=== PATIENT | male | born 1940 | race Hispanic/Latino ===

== ENCOUNTER 2017-10-24 12:04 | Inpatient (IN) | payer MEDICARE, MEDICAID ==
[~2017-10-24] VITALS: Ht 154.9 cm; Wt 83.9 kg
[~2017-10-24 12:04] MED LIST: ACETAMINOPHEN-1 EAC1 ORAL; ALUM-MAG HYDRO360 ML PO; ASPIR 8181 MG ORAL; ATIVAN0.5 MG ORAL; CARDURA4 MG ORAL; CATAPRES0.1 MG ORAL; COLACE100 MG ORAL; COLACE250 MG ORAL; COREG12.5 MG ORAL; DEXILANT30 MG ORAL; DILTIAZEM ER240 M2 ORAL; DILTIAZEM ER300 M1 PO; DUONEB 0.5-3(2.53 ML HHN; FUROSEMIDE40 MG ORAL; LEVEMIR FL100 UNIT/1 SUBQ; LOVENOX10 MG SUBQ; MILK OF MA400 MG/51 ORAL; NORCO 5-325 TA1 EACH ORAL; NOVOLIN R100 UNIT/1 SUBQ; OMEPRAZOLE20 M2 ORAL; RESTORIL15 MG ORAL; ROBITUSSIN100 MG/52 ORAL; TYLENOL EXTRA500 MG ORAL; TYLENOL325 MG ORAL; TYLENOL650 MG/20. ORAL; UNOBMED; ZOFRAN4 M1 ORAL
[2017-10-24 12:06] VITALS: BP 146/100
[2017-10-24 13:35] VITALS: BP 135/54
--- NOTE | 2017-10-24 13:37 | Diagnostic Imaging Report ---
Indication: Dyspnea Comparison: 04/22/1960 A single view chest radiograph was obtained. Findings: Right pleural effusion is suspected. The heart is enlarged. Some vascular congestion noted. IMPRESSION: Suspect mild CHF. Right pleural effusion suspected.
[2017-10-24 13:38] LABS: MEAN CORPUSCULAR HEMOGLOBIN 31.6 PG (27.0-31.0); MEAN CORPUSCULAR HGB CONC 32.1 G/DL (32.0-36.0); MEAN CORPUSCULAR VOLUME 98 FL (80-99); MEAN PLATELET VOLUME 7.2 FL (6.5-10.1); PLATELET COUNT 219 K/UL (150-450); RED BLOOD COUNT 4.15 M/UL (4.70-6.10); RED CELL DISTRIBUTION WIDTH 12.4 % (11.6-14.8); WHITE BLOOD COUNT 9.7 K/UL (4.8-10.8)
[2017-10-24 13:48] LABS: ANION GAP 12 mmol/L (5-15); CALCIUM 9.1 MG/DL (8.5-10.1); CARBON DIOXIDE 25 MMOL/L (21-32); CHLORIDE 100 MMOL/L (98-107); CREATININE 5.3 MG/DL (0.55-1.30); SODIUM 137 MMOL/L (136-145)
[2017-10-24] MEDS ORDERED: DiphenhydrAMINE 50mg/ml Inj IVP ONE (14:00)
[2017-10-24 14:03] LABS: ALANINE AMINOTRANSFERASE 17 U/L (12-78); ALBUMIN/GLOBULIN RATIO 0.7 (1.0-2.7); ASPARTATE AMINO TRANSFERASE 26 U/L (15-37); TOTAL PROTEIN 8.5 G/DL (6.4-8.2)
[2017-10-24 14:18] LABS: BAND NEUTROPHILS % (MANUAL) 0 % (0-8); BASOPHILS % (MANUAL) 0 % (0-2); EOSINOPHILS % (MANUAL) 2 % (0-3); LYMPHOCYTES % (MANUAL) 7 % (20-45); NEUTROPHILS % (MANUAL) 86 % (45-75); PLATELET ESTIMATE ADEQUATE; PLATELET MORPHOLOGY NORMAL; TOTAL CELLS COUNTED 100
--- NOTE | 2017-10-24 14:54 | Emergency Room Report ---
History of Present Illness General Chief Complaint: Nausea Source: Patient, EMS Present Illness HPI 77-year-old male presents to ED for evaluation. Patient presents [facility] with nausea and vomiting x2 days. Denies any abdominal pain. Patient did not dialysis today because he's been vomiting. Denies chest pain or shortness of breath. Denies fevers or chills. No other aggravating relieving factors. Denies any other associated symptoms Allergies: Coded Allergies: NO KNOWN ALLERGIES (Unverified Allergy, Unknown, 09/09/15) Patient History Past Medical History: COPD, GERD, psych hx Past Surgical History: none Pertinent Family History: none Social History: Denies: smoking, alcohol use, drug use Immunizations: UTD Reviewed Nursing Documentation: PMH: Agreed, PSxH: Agreed Nursing Documentation-PMH Hx Cardiac Problems: Yes Hx Hypertension: Yes Hx COPD: Yes Hx Diabetes: Yes Hx Cancer: No Hx Gastrointestinal Problems: Yes - gi reflux,weakness Hx Dialysis: Yes History Of Psychiatric Problem: Yes - depresive disorder Hx Neurological Problems: No Review of Systems All Other Systems: negative except mentioned in HPI Physical Exam Vital Signs Date Time Temp Pulse Resp B/P (MAP) Pulse Ox O2 Delivery O2 Flow Rate FiO2 10/24/17 11:56 97.9 74 18 160/66 98 Room Air Sp02 EP Interpretation: reviewed, normal General Appearance: no apparent distress, alert, GCS 15, non-toxic Head: normocephalic, atraumatic Eyes: bilateral eye normal inspection, bilateral eye PERRL ENT: hearing grossly normal, normal pharynx, no angioedema, normal voice Neck: full range of motion, supple/symm/no masses Respiratory: chest non-tender, lungs clear, normal breath sounds, speaking full sentences Cardiovascular #1: regular rate, rhythm, no edema Cardiovascular #2: 2+ carotid (R), 2+ carotid (L), 2+ radial (R), 2+ radial (L) , 2+ dorsalis pedis (R), 2+ dorsalis pedis (L) Gastrointestinal: normal bowel sounds, non tender, soft, non-distended, no guarding, no rebound Rectal: deferred Genitourinary: normal inspection, no CVA tenderness Musculoskeletal: back normal, non-tender Neurologic: alert, oriented x3, responsive, motor strength/tone normal, sensory intact, speech normal Psychiatric: judgement/insight normal, memory normal, mood/affect normal, no suicidal/homicidal ideation Reflexes: 3+ bicep (R), 3+ bicep (L), 3+ tricep (R), 3+ tricep (L), 3+ knee (R) , 3+ knee (L) Skin: normal color, no rash, warm/dry, well hydrated Lymphatic: no adenopathy Medical Decision Making Diagnostic Impression: Primary Impression: CHF (congestive heart failure), NYHA class III Qualified Codes: I50.9 - Heart failure, unspecified Additional Impression: ESRD (end stage renal disease) on dialysis ER Course Hospital Course 77-year-old male presents ED with nausea and vomiting. Missing but dialysis today Differential diagnoses include: MN/unstable angina, fluid overload, CHF exacerabation, hyperkalemia, uremia Clinical course Patient placed on stretcher. on bus monitor. After initial history and physical I ordered labs, EKG, chest x-ray, IVFs, zofran labs reviewed- BUN/Cr elevated. K ok. no leukocytosis, hemoglobin/hematocrit stable, trop negative EKG - NSR, no acute ischemic changes interpreted by me Chest x-ray- cardiomegaly/CHF Patient unable to tolerate by mouth in ED. Requiring more Zofran Case discussed with Dr. Mcdonald and he agreed to accept the patient to his service for further care and support I. I feel this is a highly complex case requiring extensive working including EKG/Rhythm strip, Xray/CT/US, Blood/urine lab work, repeat exams while in ED, and administration of strong opiates/narcotics for pain control, admission to hospital or close patient follow up. Diagnosis - CHF, ESRD on dialysis admitted to floor in serious condition Labs Test 10/24/17 13:00 White Blood Count 9.7 K/UL (4.8-10.8) Red Blood Count 4.15 M/UL (4.70-6.10) Hemoglobin 13.1 G/DL (14.2-18.0) Hematocrit 40.8 % (42.0-52.0) Mean Corpuscular Volume 98 FL (80-99) Mean Corpuscular Hemoglobin 31.6 PG (27.0-31.0) Mean Corpuscular Hemoglobin Concent 32.1 G/DL (32.0-36.0) Red Cell Distribution Width 12.4 % (11.6-14.8) Platelet Count 219 K/UL (150-450) Mean Platelet Volume 7.2 FL (6.5-10.1) Neutrophils (%) (Auto) % (45.0-75.0) Lymphocytes (%) (Auto) % (20.0-45.0) Monocytes (%) (Auto) % (1.0-10.0) Eosinophils (%) (Auto) % (0.0-3.0) Basophils (%) (Auto) % (0.0-2.0) Differential Total Cells Counted 100 Neutrophils % (Manual) 86 % (45-75) Lymphocytes % (Manual) 7 % (20-45) Monocytes % (Manual) 5 % (1-10) Eosinophils % (Manual) 2 % (0-3) Basophils % (Manual) 0 % (0-2) Band Neutrophils 0 % (0-8) Platelet Estimate Adequate Platelet Morphology Normal Red Blood Cell Morphology Normal Sodium Level 137 MMOL/L (136-145) Potassium Level 5.0 MMOL/L (3.5-5.1) Chloride Level 100 MMOL/L (98-107) Carbon Dioxide Level 25 MMOL/L (21-32) Anion Gap 12 mmol/L (5-15) Blood Urea Nitrogen 57 mg/dL (7-18) Creatinine 5.3 MG/DL (0.55-1.30) Estimat Glomerular Filtration Rate mL/min (>60) Glucose Level 175 MG/DL (74-106) Calcium Level 9.1 MG/DL (8.5-10.1) Total Bilirubin 0.7 MG/DL (0.2-1.0) Aspartate Amino Transf (AST/SGOT) 26 U/L (15-37) Alanine Aminotransferase (ALT/SGPT) 17 U/L (12-78) Alkaline Phosphatase 137 U/L (46-116) Total Creatine Kinase 89 U/L (26-308) Creatine Kinase MB 2.0 NG/ML (0.0-3.6) Creatine Kinase MB Relative Index 2.2 Troponin I 0.008 ng/mL (0.000-0.056) Pro-B-Type Natriuretic Peptide 48105 pg/mL (0-125) Total Protein 8.5 G/DL (6.4-8.2) Albumin 3.6 G/DL (3.4-5.0) Globulin 4.9 g/dL Albumin/Globulin Ratio 0.7 (1.0-2.7) EKG Diagnostic Results Rate: normal Rhythm: NSR ST Segments: no acute changes ASA given to the pt in ED: No Rhythm Strip Diag. Results EP Interpretation: yes Rhythm: NSR, no PVC's, no ectopy Chest X-Ray Diagnostic Results Chest X-Ray Diagnostic Results : Chest X-Ray Ordered: Yes # of Views/Limited/Complete: 1 View Indication: Chest Pain EP Interpretation: Yes Interpretation: no pneumothorax, no acute cardiopulmonary disease, other - cardiomegaly. effusion Impression: Other - chf Electronically Signed by: Electronically signed by Jose Burns MD Last Vital Signs Date Time Temp Pulse Resp B/P (MAP) Pulse Ox O2 Delivery O2 Flow Rate FiO2 10/24/17 13:35 73 14 135/54 96 Room Air 10/24/17 12:06 97.6 Status: improved Disposition: ADMITTED INPATIENT Condition: Serious Referrals: HARPAL VALENCIA (PCP) JOSE BURNS M.D. Oct 24, 2017 14:54
[2017-10-24 15:07] VITALS: BP 128/51
[2017-10-24 16:30] VITALS: BP 119/58
[2017-10-24 17:30] VITALS: BP 132/60
[2017-10-24] MEDS ORDERED: Triamcinolone 0.1% 15gm Cr TOPIC SCH (18:15)
[2017-10-24] MEDS ORDERED: Docusate 250mg cap ORAL PRN (19:00)
[2017-10-24] MEDS ORDERED: Milk of Magnesia 30ml Ud ORAL PRN (19:00)
[2017-10-24 20:00] VITALS: BP 115/53
[2017-10-24] MEDS: Carvedilol 12.5mg tab ORAL SCH (21:23)
[2017-10-24] MEDS: NovoLOG Insulin Flexpen SUBQ SCH (21:25)
[2017-10-24] MEDS: Levemir Flexpen SUBQ SCH (21:26)
[2017-10-24] MEDS: Heparin 5000 units/ml inj SUBQ SCH (21:27)
--- NOTE | 2017-10-24 23:45 | Consultation ---
DATE OF CONSULTATION: 10/24/2017 NEPHROLOGY CONSULTATION CONSULTING PHYSICIAN: Duke Christine M.D. ATTENDING PHYSICIAN: Jerrod Mcdonald M.D. HISTORY OF PRESENT ILLNESS: The patient has end-stage renal disease, on dialysis for many years. End-stage renal disease is due to diabetes and also hypertension. He has had nausea and vomiting for the past two days. No apparent fever, chills, hematochezia, melena, diarrhea, or constipation. He now comes with the above problem. He has been quite stable on dialysis. He has chronic CHF compensated usually by fluid removal on dialysis and hypertension has generally been well controlled on dialysis lately. ALLERGIES: None known. PAST SURGICAL HISTORY: Right below-knee amputation and left arm AV fistula. HABITS: He is a nondrinker and nonsmoker. MEDICATIONS: Include milk of magnesia, [place], and Tylenol p.r.n. Sliding scale of regular insulin, Prilosec 20 mg daily, Nephro-Diann one daily, diltiazem 240 mg daily, Pro-Stat 30 mL b.i.d., aspirin 81 mg daily, Cardura 4 mg b.i.d., Coreg 12.5 mg b.i.d., and Levemir 18 units daily. PHYSICAL EXAMINATION: GENERAL: The patient is alert man lying . NOTE: DICTATION ENDED ABRUPTLY Duke Christine M.D. DR: Nikita JOB#: [id number] CC:
[2017-10-25] MEDS: Triamcinolone 0.1% 15gm Cr TOPIC SCH ×4 (00:04→17:13)
[2017-10-25 00:29] VITALS: BP 111/56
[2017-10-25 04:00] VITALS: BP 137/62
[2017-10-25] MEDS ORDERED: Heparin Sod 1000 units/ml 10ml IV SCH (06:00)
[2017-10-25] MEDS: NovoLOG Insulin Flexpen SUBQ SCH ×4 (06:30→21:00)
[2017-10-25 08:00] VITALS: BP 145/67
--- NOTE | 2017-10-25 08:26 | Nephrology Progress Note ---
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 Plan hd today ppi elimite Subjective Constitutional: Reports: weakness HEENT: Reports: no symptoms Genitourinary: Reports: no symptoms Neurologic/Psychiatric: Reports: no symptoms Objective Objective Last 24 Hour Vital Signs Date Time Temp Pulse Resp B/P (MAP) Pulse Ox O2 Delivery O2 Flow Rate FiO2 10/25/17 04:00 97.6 61 20 137/62 94 10/25/17 00:29 97.7 54 18 111/56 94 10/24/17 21:23 55 115/53 10/24/17 20:00 97.7 55 19 115/53 94 10/24/17 17:30 98.2 70 17 132/60 97 Room Air 10/24/17 17:30 70 17 132/60 97 Room Air 10/24/17 16:30 96.3 57 20 119/58 95 Room Air 10/24/17 15:07 98.0 62 15 128/51 95 Room Air 10/24/17 13:35 73 14 135/54 96 Room Air 10/24/17 12:06 97.6 78 22 146/100 94 Room Air 10/24/17 11:56 97.9 74 18 160/66 98 Room Air Laboratory Tests 10/24/17 13:00: White Blood Count 9.7, Red Blood Count 4.15L, Hemoglobin 13.1L, Hematocrit 40.8L , Mean Corpuscular Volume 98, Mean Corpuscular Hemoglobin 31.6H, Mean Corpuscular Hemoglobin Concent 32.1, Red Cell Distribution Width 12.4, Platelet Count 219, Mean Platelet Volume 7.2, Neutrophils (%) (Auto) , Lymphocytes (%) ( Auto) , Monocytes (%) (Auto) , Eosinophils (%) (Auto) , Basophils (%) (Auto) , Differential Total Cells Counted 100, Neutrophils % (Manual) 86H, Lymphocytes % (Manual) 7L, Monocytes % (Manual) 5, Eosinophils % (Manual) 2, Basophils % ( Manual) 0, Band Neutrophils 0, Platelet Estimate Adequate, Platelet Morphology Normal, Red Blood Cell Morphology Normal, Sodium Level 137, Potassium Level 5.0 , Chloride Level 100, Carbon Dioxide Level 25, Anion Gap 12, Blood Urea Nitrogen 57H, Creatinine 5.3H, Estimat Glomerular Filtration Rate , Glucose Level 175H, Calcium Level 9.1, Total Bilirubin 0.7, Aspartate Amino Transf (AST/ SGOT) 26, Alanine Aminotransferase (ALT/SGPT) 17, Alkaline Phosphatase 137H, Total Creatine Kinase 89, Creatine Kinase MB 2.0, Creatine Kinase MB Relative Index 2.2, Troponin I 0.008, Pro-B-Type Natriuretic Peptide 76652S, Total Protein 8.5H, Albumin 3.6, Globulin 4.9, Albumin/Globulin Ratio 0.7L Height (Feet): 5 Height (Inches): 1.00 Weight (Pounds): 185 General Appearance: no apparent distress, alert EENT: normal ENT inspection Neck: normal alignment Cardiovascular: normal rate, regular rhythm Respiratory/Chest: lungs clear Abdomen: non tender, soft, no organomegaly Extremities: trace edema, other - r LUIS Shipley Oct 25, 2017 08:26
[2017-10-25 08:52] LABS: BASOPHILS % (AUTO) 0.9 % (0.0-2.0); EOSINOPHILS % (AUTO) 4.9 % (0.0-3.0); LYMPHOCYTES % (AUTO) 16.3 % (20.0-45.0); MEAN CORPUSCULAR HEMOGLOBIN 31.5 PG (27.0-31.0); MEAN CORPUSCULAR HGB CONC 32.1 G/DL (32.0-36.0); MEAN CORPUSCULAR VOLUME 98 FL (80-99); MEAN PLATELET VOLUME 7.2 FL (6.5-10.1); MONOCYTES % (AUTO) 7.1 % (1.0-10.0); NEUTROPHILS % (AUTO) 70.8 % (45.0-75.0); PLATELET COUNT 181 K/UL (150-450); RED BLOOD COUNT 3.55 M/UL (4.70-6.10); RED CELL DISTRIBUTION WIDTH 12.2 % (11.6-14.8); WHITE BLOOD COUNT 7.5 K/UL (4.8-10.8)
[2017-10-25 08:58] LABS: ANION GAP 7 mmol/L (5-15); CALCIUM 8.2 MG/DL (8.5-10.1); CARBON DIOXIDE 28 MMOL/L (21-32); CHLORIDE 106 MMOL/L (98-107); CREATININE 6.2 MG/DL (0.55-1.30); POTASSIUM 4.6 MMOL/L (3.5-5.1); SODIUM 141 MMOL/L (136-145)
[2017-10-25] MEDS: Heparin 5000 units/ml inj SUBQ SCH ×2 (09:00→21:00)
[2017-10-25] MEDS: dilTIAZem HCl CD 240mg cap ORAL SCH (09:00)
[2017-10-25] MEDS: Carvedilol 12.5mg tab ORAL SCH ×2 (09:00→21:00)
[2017-10-25] MEDS ORDERED: dilTIAZem HCl CD 240mg cap ORAL SCH (09:00)
[2017-10-25] MEDS: Aspirin Baby 81mg ORAL SCH (09:17)
[2017-10-25 12:00] VITALS: BP 148/76
--- NOTE | 2017-10-25 15:15 | History and Physical Report ---
DATE OF ADMISSION: 10/24/2017 CHIEF COMPLAINT: Nausea, vomiting, and end-stage renal disease. HISTORY OF PRESENT ILLNESS: The patient is a 77-year-old male. He has a history of end-stage renal disease, congestive heart failure, diabetes, and hypertension. He presented from [facility] facility with complaints of intractable nausea and vomiting for four days. According to the patient, he has had intermittent episodes of vomiting for four days. He denies any diarrhea. No melena. No bright red blood per rectum. He was transferred to the emergency room because the patient's symptoms had persisted, were not improving after four days on evaluation there. Initial labs were unremarkable, but in light of the patient's persistent nausea and vomiting, he is admitted for further evaluation and care. PAST MEDICAL HISTORY: As above. PAST SURGICAL HISTORY: Includes a prior history of BKA. CURRENT MEDICATIONS: Reconciled and reviewed. ALLERGIES: None. FAMILY HISTORY: None. SOCIAL HISTORY: Negative for tobacco, ethanol, or drugs. REVIEW OF SYSTEMS: GENERAL: No fever or chills. HEENT: No headaches or visual changes. CARDIOPULMONARY: No chest pain or shortness of breath. GASTROINTESTINAL: Positive nausea and vomiting. GENITOURINARY: No urgency or frequency. MUSCULOSKELETAL: No joint pain or swelling. NEUROLOGIC: No evidence of seizures. SKIN: Positive history of rash and itching. PHYSICAL EXAMINATION: VITAL SIGNS: Temperature 97.6, pulse 61, respirations 20, and blood pressure 137/62. GENERAL: The patient is a well-developed male, in no apparent distress. He is awake, alert, and oriented x4. NECK: Supple. HEART: Regular rate and rhythm. LUNGS: Clear. ABDOMEN: Soft. Slightly distended. There is no rebound or guarding. EXTREMITIES: Without clubbing, cyanosis, or edema. There is right BKA. SKIN: The patient has multiple excoriations over the arms, legs, and chest. LABORATORY DATA: White count was 9 and hemoglobin 13. Sodium 137 and creatinine 5.3. ASSESSMENT: This is a pleasant male admitted with complaints of, 1. Intractable nausea and vomiting, suspect secondary to gastroenteritis. 2. Intractable nausea and vomiting. 3. Possible gastroenteritis. 4. Rash, rule out scabies. 5. End-stage renal disease. 6. Hypertension. 7. Diabetes. PLAN: Antiemetic therapy. Check UA. Check amylase and lipase. Check KUB. Renal consultation for hemodialysis. Empiric treatment for scabies with Elimite. We will continue the patient's outpatient cardiac and diabetic regimen. Jerrod Mcdonald M.D. DR: PRISCA JOB#: [id number] CC:
[2017-10-25 16:00] VITALS: BP 152/69
--- NOTE | 2017-10-25 18:16 | Cardiology Report ---
APPROVED REPORT EKG Measurement Heart [id number] Normal sinus rhythm Nonspecific ST abnormality Abnormal ECG
[2017-10-25] MEDS: Levemir Flexpen SUBQ SCH (19:30)
[2017-10-25 20:07] VITALS: BP 154/81
[2017-10-25] MEDS: Doxazosin 4mg tab ORAL SCH (21:00)
[2017-10-26 00:30] VITALS: BP 135/79
[2017-10-26 04:00] VITALS: BP 147/63
[2017-10-26] MEDS: NovoLOG Insulin Flexpen SUBQ SCH ×2 (06:10→11:44)
[2017-10-26 08:13] VITALS: BP 141/75
[2017-10-26] MEDS: Carvedilol 12.5mg tab ORAL SCH (09:22)
[2017-10-26] MEDS: Aspirin Baby 81mg ORAL SCH (09:22)
[2017-10-26] MEDS: dilTIAZem HCl CD 240mg cap ORAL SCH (09:22)
[2017-10-26] MEDS: Heparin 5000 units/ml inj SUBQ SCH (09:23)
--- NOTE | 2017-10-26 10:27 | Diagnostic Imaging Report ---
Indication: Vomiting, abdominal distention Technique: Supine view of the abdomen Comparison: none Findings: Unremarkable bowel gas pattern. No unusual masses or calcifications. There is mild degenerative spondylosis incidentally noted Impression: No acute process
[2017-10-26 11:22] VITALS: BP 117/65
[2017-10-26] MEDS: Doxazosin 4mg tab ORAL SCH (11:43)
--- NOTE | 2017-10-27 03:30 | Discharge Summary 2 SIG ---
DATE OF ADMISSION: 10/24/2017 DATE OF DISCHARGE: 10/26/2017 MANAGER CUSTOMER SERVICE: Duke Christine M.D. BRIEF HOSPITAL COURSE: The patient is a 77-year-old male, who has history of end-stage renal disease, congestive heart failure, diabetes, and hypertension, who presented from [facility] for complaints of intractable nausea and vomiting for four days. Denied any diarrhea. No melena. No bright red blood per rectum. He was transferred to emergency room because symptoms had persisted and were not improving after 4 days of evaluation. At ED, laboratories were unremarkable, however, due to persistent nausea and vomiting, he was admitted for evaluation and care. Dr. Christine was consulted. He was ordered inpatient hemodialysis. He also had generalized rash, suspect scabies. He was given permethrin cream/Elimite cream. He had abdominal x-ray done which was unremarkable. Lipase was 36. Hepatitis panel was negative. He was continued on his [facility] medications and blood sugar was monitored. He was eventually discharged back to [facility]. FINAL DIAGNOSES: 1. Intractable nausea and vomiting, suspect secondary to gastroenteritis. 2. Rash, possible scabies infection. 3. End-stage renal disease, on hemodialysis. 4. Hypertension. 5. Diabetes mellitus. DISPOSITION: The patient was discharged to [facility]. DISCHARGE MEDICATIONS: Refer to medication list. Jerrod Mcdonald M.D. I have been assigned to dictate discharge summary on this account and I was not involved in the patient's management. Ernestine Phipps N.P. DR: Toñito JOB#: [id number] CC: RASHID
--- NOTE | 2017-10-27 03:45 | Discharge Summary ---
DATE OF ADMISSION: 10/24/2017 DATE OF DISCHARGE: 10/26/2017 ADMISSION DIAGNOSES: 1. Intractable nausea and vomiting. 2. Gastroenteritis. 3. Dehydration. 4. Scabies. 5. End-stage renal disease. 6. Hypertensive heart disease. DISCHARGE DIAGNOSES: 1. Intractable nausea and vomiting. 2. Gastroenteritis. 3. Dehydration. 4. Scabies. 5. End-stage renal disease. 6. Hypertensive heart disease. HOSPITAL COURSE: The patient is a pleasant male, admitted with complaints of intractable nausea and vomiting. He was dehydrated and required IV hydration and antiemetic therapy. He had a KUB that was negative. His amylase and lipase were negative. The patient's nausea and vomiting resolved on its own. On discharge, the patient was tolerating renal diet without any nausea or vomiting. He was dialyzed. On discharge, he was stable. He will be discharged back to [facility] facility. Continue his prior medications. DISCHARGE MEDICATIONS: Please see discharge medication list for discharge medications. DIET: Renal diet. ACTIVITY: Ad-kya. FOLLOWUP: The patient will be followed by his PMD in one to two days. Jerrod Mcdonald M.D. DR: MATHIEU JOB#: [id number] CC:
== END 2017-10-26 12:52 | DRG 640 ==
LOC: EDBD 12:04 → EMR 14:20 → 3E 14:33 → EDBEDREQ 15:11 → 4E 10-25 23:25
PROC: 5A1D70Z Performance of Urinary Filtration, Intermittent, Less than 6 Hours Per Day (ICD-10-PCS; principal; 2017-10-25)
DX: E86.0 Dehydration (principal); N18.6 End stage renal disease; K52.9 Noninfective gastroenteritis and colitis, unspecified; I13.2 Hypertensive heart and chronic kidney disease with heart failure and with stage 5 chronic kidney disease, or end stage renal disease; E10.22 Type 1 diabetes mellitus with diabetic chronic kidney disease; I50.9 Heart failure, unspecified; Z99.2 Dependence on renal dialysis; Z79.4 Long term (current) use of insulin; B86 Scabies; Z89.511 Acquired absence of right leg below knee
CPT/HCPCS: 36415; 71010; 74000; 80048; 80053; 82550; 82553; 82962; 83690; 83880; 84484; 85007; 85025; 86705; 86709; 86803; 87081; 87340; 93005; 99285; J1815; J2405; S5561